=== PATIENT | female | born 1950 | race Caucasian/White ===

== ENCOUNTER 2019-10-10 18:06 | Emergency (ER) | payer SELFPAY ==
[~2019-10-10] VITALS: Ht 167.6 cm; Wt 93.4 kg
[2019-10-10 19:59] VITALS: BP 122/63
== END 2019-10-10 21:15 | disposition home or self-care (01) ==
LOC: EDBD 18:06 → ER 18:06
DX: S09.90XA Unspecified injury of head, initial encounter (principal); S01.03XA Puncture wound without foreign body of scalp, initial encounter; W19.XXXA Unspecified fall, initial encounter; Y93.89 Activity, other specified; Y92.89 Other specified places as the place of occurrence of the external cause; Y99.8 Other external cause status
CPT/HCPCS: 70450